=== PATIENT | female | born 1945 | race Caucasian/White ===

== ENCOUNTER 2016-04-20 19:40 | Emergency (ER) | payer MEDICARE, BC ==
[2016-04-20 19:58] VITALS: BP 138/90
--- NOTE | 2016-04-20 21:36 | EDM.PDOC ---
ED HPI Trauma - General Chief Complaint: Lower Extremity Injury/Pain Stated Complaint: LEFT LEG SWELLING/LUMP Time Seen by Provider: 04/20/16 19:51 Source: Reports: Patient History Limitations: Reports: No limitations - History of Present Illness INITIAL COMMENTS - FREE TEXT/NARRATIVE: Bilateral leg areas of redness. This is a 70-year-old Ronna presents emergency room with her . She reports procedure where saline was injected into her legs to dissolve superficial veins. Since the injection she did quite well , now has developed areas of redness and a hard firm nontender circular areas of redness at injection site, concerns of blood clot. She reports healthy, no medications, no chronic health conditions. Allergies/ADRs: Allergies No Known Allergies Allergy (Verified 04/20/16 19:58) Home Medications: Ambulatory Orders Astragalus Root Extract [Astragalus Extract] 100 gm PO DAILY 10/19/12 [ Confirmed 04/20/16] Multivitamin/Iron/Folic Acid [Centrum Ultra Women's] 1 tab PO DAILY 10/19/12 [ Confirmed 04/20/16] Past Medical History Respiratory History: Reports: Bronchitis, recurrent Musculoskeletal History: Reports: Other (see below) Other Musculoskeletal History: smashed finger - Past Surgical History HEENT Surgical History: Reports: Tonsillectomy Female Surgical History: Reports: Hysterectomy, Other (see below) Other Female Surgeries/Procedures: Bladder lift Musculoskeletal Surgical History: Reports: Carpal tunnel Social & Family History - Tobacco Use Smoking Status *Q: Never Smoker Second Hand Smoke Exposure: No - Caffeine Use Caffeine Use: Reports: Coffee - Recreational Drug Use Recreational Drug Use: No Review of Systems - Review of Systems Review Of Systems: See Below Constitutional: Reports: no symptoms Respiratory: Reports: no symptoms Cardiovascular: Reports: no symptoms GI/Abdominal: Reports: No symptoms Genitourinary: Reports: no symptoms Musculoskeletal: Reports: no symptoms Skin: Reports: erythema, change in color Neurological: Reports: no symptoms Psychiatric: Reports: no symptoms Trauma Exam - Physical Exam Exam: See Below Exam Limited By: No limitations General Appearance: Reports: alert, WD/WN, no apparent distress Head: Reports: atraumatic, normocephalic Neck: Reports: non-tender, full range of motion, normal alignment, normal inspection Respiratory Exam: Reports: no respiratory distress, lungs clear, normal breath sounds Cardiovascular: Reports: regular rate, rhythm, no edema, no murmur Extremities: Reports: non-tender, other (Normal gait and balance is noted, no limping.) Skin: Reports: Other (3 scabbed areas with a circular areas of firm, hard, redness. Less than 2 cm circular) Course - Vital Signs Last Recorded V/S: Last Vital Signs Temp 36.1 C 04/20/16 19:56 Pulse 82 04/20/16 19:56 Resp 18 04/20/16 19:56 BP 138/90 04/20/16 19:56 Pulse Ox 98 04/20/16 19:56 - Orders/Labs/Meds Orders: Active Orders 24 hr Category Date Time Status VL Duplex Lwr Ext Veins Comp [US] Stat Exams 04/20/16 20:19 Taken Departure - Departure Time of Disposition: 21:42 Disposition: Home, Self-Care 01 Condition: good Clinical Impression: Cellulitis and abscess of leg Referrals: PCP,None [Primary Care Provider] - Forms: ED Department Discharge Care Plan Goals: Cellulitis -Keflex 3 times a day times -May apply warm moist heat to area 3 times a day as needed -Followup with primary care for recheck on Friday or Friday -Bilateral Doppler ultrasounds rule out clot are negative. Report reviewed with patient and Return to in to clinic or ER if has increased pain, fever, chills, increased redness, increased discharge, or any concerns. - Problem List & Annotations (1) Cellulitis and abscess of leg SNOMED Code(s): 629523693 Code(s): L02.419 - CUTANEOUS ABSCESS OF LIMB, UNSPECIFIED; L03.119 - CELLULITIS OF UNSPECIFIED PART OF LIMB Status: Acute Priority: High Current Visit: Yes - Problem List Review Problem List Initiated/Reviewed/Updated: Yes - My Orders Last 24 Hours: My Active Orders 04/20/16 20:19 VL Duplex Lwr Ext Veins Comp [US] Stat - Assessment/Plan Last 24 Hours: My Active Orders 04/20/16 20:19 VL Duplex Lwr Ext Veins Comp [US] Stat Plan: Cellulitis -Keflex 3 times a day times -May apply warm moist heat to area 3 times a day as needed -Followup with primary care for recheck on Friday or Friday -Bilateral Doppler ultrasounds rule out clot are negative. Report reviewed with patient and Return to in to clinic or ER if has increased pain, fever, chills, increased redness, increased discharge, or any concerns.
== END 2016-04-20 21:46 | disposition home or self-care (01) ==
LOC: JP.ED 19:40
DX: L03.116 Cellulitis of left lower limb (principal); L03.115 Cellulitis of right lower limb; Z79.899 Other long term (current) drug therapy
CPT/HCPCS: 93970; 99283; 99284-25